=== PATIENT | female | born 1970 | race Caucasian/White ===

== ENCOUNTER 2022-03-02 23:26 | Emergency (ER) | payer OTHER ==
[~2022-03-02] VITALS: Ht 170.2 cm; Wt 61.2 kg
[~2022-03-02 23:26] MED LIST: MACROBID 100 M100 MG PO; OMEPRAZOLE20 MG PO; PENICILLIN V P500 MG PO
[2022-03-03] MEDS ORDERED: ANUSOL-HC25 MG PR (01:31)
[2022-03-03] MEDS ORDERED: TOPICAINE113 GM TOP (01:31)
== END 2022-03-03 02:00 | disposition home or self-care (01) ==
LOC: ED 23:26
DX: K64.5 Perianal venous thrombosis (principal); F17.200 Nicotine dependence, unspecified, uncomplicated
CPT/HCPCS: 36415; 74177; 80053; 81001; 84703; 85025; 99284-25; A9270; Q9967